=== PATIENT | female | born 1935 | race Caucasian/White ===

== ENCOUNTER 2017-10-26 15:19 | Emergency (ER) | payer MEDICARE, BC ==
--- NOTE | 2017-10-26 15:30 | UC ---
Throat Pain/Nasal Domingo HPI - HPI Summary HPI Summary: 82 year female presents with complains of sore throat and rash on her back. - History of Current Complaint Stated Complaint: ST, SKIN COMPLAINT Time Seen by Provider: 10/26/17 15:30 Hx Obtained From: Patient Onset/Duration: Sudden Onset Severity: Moderate Pain Scale Used: 0-10 Numeric - 5 Cough: Nonproductive Associated Signs & Symptoms: Positive: Negative - Allergies/Home Medications Allergies/Adverse Reactions: Allergies Allergy/AdvReac Type Severity Reaction Status Date / Time prescribed pain med Allergy Rash And Uncoded 10/26/17 16:45 Itching Home Medications: Home Medications Amlodipine Besylate [Norvasc 5 mg tab] 5 mg PO DAILY 10/26/17 [History Confirmed 10/26/17] Citalopram TAB* [CeleXA TAB*] 30 mg PO DAILY 10/26/17 [History Confirmed ] Clotrimazole W/ Betamethasone [Clotrimazole/Betamethason 1-0.05 %] 1 lot EX BID 10/26/17 [History Confirmed 10/26/17] Docusate CAP* [Colace Cap*] 100 mg PO BID PRN 10/26/17 [History Confirmed ] Hydrochlorothiazide TAB* [Hydrodiuril TAB*] 25 mg PO DAILY PRN 10/26/17 [ History Confirmed 10/26/17] Hydrocodone-Acetaminophen [Vicodin 5-300 mg] 1 tab PO Q4H PRN 10/26/17 [History Confirmed 10/26/17] Latanoprost 0.005%* [Xalatan 0.005%*] 1 drop BOTH EYES DAILY 10/26/17 [History Confirmed 10/26/17] Multiple Vitamins W/ Minerals [Preservision Areds 2 + Mu] 1 cap PO DAILY [History Confirmed 10/26/17] Nystatin CREAM* 1 applic TOPICAL BID 10/26/17 [History Confirmed 10/26/17] Rosuvastatin Calcium 5 mg PO DAILY 10/26/17 [History Confirmed 10/26/17] Sennosides [Eq Natural Laxative] 17.12 mg PO DAILY PRN 10/26/17 [History Confirmed 10/26/17] Vitamin B Complex TAB* [Complex B-100*] 1 tab PO DAILY 10/26/17 [History Confirmed 10/26/17] fentaNYL PATCH 12 MCG/HR * [Duragesic Patch 12 Mcg/Hr *] 12 mcg TRANSDERM Q72H 10/26/17 [History Confirmed 10/26/17] PMH/Surg Hx/FS Hx/Imm Hx Previously Healthy: Yes Review of Systems Constitutional: Negative Skin: Rash Eyes: Negative ENT: Sore Throat, Nasal Discharge, Sinus Congestion, Sinus Pain/Tenderness Respiratory: Negative Cardiovascular: Negative Gastrointestinal: Negative Genitourinary: Negative Motor: Negative Neurovascular: Negative Musculoskeletal: Negative Neurological: Negative Psychological: Negative All Other Systems Reviewed And Are Negative: Yes Physical Exam Triage Information Reviewed: Yes Vital Signs Reviewed: Yes Eye Exam: Normal ENT: Positive: Pharyngeal erythema, Nasal congestion, Nasal drainage, Sinus tenderness Dental Exam: Normal Neck exam: Normal Neck: Positive: 1 Respiratory Exam: Normal Cardiovascular Exam: Normal Abdominal Exam: Normal Musculoskeletal Exam: Normal Neurological Exam: Normal Psychological Exam: Normal Skin: Positive: rashes Throat Pain/Nasal Course/Dx - Differential Dx/Diagnosis Provider Diagnoses: strep throat Discharge - Discharge Plan Condition: Stable Disposition: HOME Prescriptions: Amoxicillin PO (*) [Amoxicillin 875 MG (*)] 875 mg PO BID #20 tab Magic M W2 Vinnie/Maal/Nyst/Lido* 5 ml SWISH SPIT QID PRN #120 ml PRN Reason: Pain Triamcinolone 0.5% CREAM(NF) [Triamcinolone 0.5% CREAM*] 1 applic TOPICAL BID # 85 gm Patient Education Materials: Strep Throat (ED) Referrals: Junito Stoll MD [Primary Care Provider] -
== END 2017-10-26 17:41 | disposition home or self-care (01) ==
LOC: UCCORT 15:19
DX: J02.0 Streptococcal pharyngitis (principal)
CPT/HCPCS: 87651; 99202; G0463

== ENCOUNTER 2019-12-30 11:06 | Emergency (ER) | payer MEDICARE, BC ==
[2019-12-30 12:41] VITALS: BP 130/46
--- NOTE | 2019-12-30 13:06 | UC ---
Respiratory Complaint HPI - HPI Summary HPI Summary: exposed to flu 6 days ago. has since had Cough x 2 days, elevated temps: 99.8 yesterday. assoc w/ fatigueshe is drinking fluids normally and urinating well. Dr. Stoll is aware of low diastolic BP readings. daughter just wants to check for the flu. - History of Current Complaint Chief Complaint: UCRespiratory Stated Complaint: FLU EXP, FEVER, COUGH Time Seen by Provider: 12/30/19 12:50 Hx Obtained From: Patient Pain Intensity: 0 Aggravating Factors: Nothing Alleviating Factors: Nothing - Allergies/Home Medications Allergies/Adverse Reactions: Allergies Allergy/AdvReac Type Severity Reaction Status Date / Time Latex, Natural Rubber Allergy skin Verified 12/30/19 12:43 sloughing fentanyl patch Allergy Rash Uncoded 12/30/19 12:43 prescribed pain med Allergy See Comment Uncoded 12/30/19 12:43 Home Medications: Home Medications Amlodipine Besylate [Norvasc 5 mg tab] 5 mg PO DAILY 10/26/17 [History Confirmed 12/30/19] Citalopram TAB* [CeleXA TAB*] 30 mg PO DAILY 10/26/17 [History Confirmed ] Hydrocodone/Acetaminophen [Vicodin 5-300 mg] 1 tab PO TID 10/26/17 [History Confirmed 12/30/19] Latanoprost 0.005%* [Xalatan 0.005%*] 1 drop BOTH EYES DAILY 10/26/17 [History Confirmed 12/30/19] Nystatin CREAM* 1 applic TOPICAL BID PRN 10/26/17 [History Confirmed 12/30/19] Amitriptyline TAB* [Elavil TAB*] 1 dose PO BID 12/30/19 [History Confirmed 12/30] Areds 1 tab PO BID 12/30/19 [History Confirmed 12/30/19] DOXYcycline CAP(*) [DOXYcycline 100MG CAP(*)] 100 mg PO DAILY 5 Days #5 cap [Rx] Multivitamin [Multivitamins] 1 each PO DAILY 12/30/19 [History Confirmed ] Rosuvastatin Calcium [Crestor] 5 mg PO QPM 12/30/19 [History Confirmed 12/30/19] Water Pill 1 dose PO QAM 12/30/19 [History Confirmed 12/30/19] PMH/Surg Hx/FS Hx/Imm Hx Previously Healthy: Yes Cardiovascular History: Cardiac Disease Psychological History: Depression - Surgical History Surgical History: Yes - Family History Known Family History: Positive: Non-Contributory - Social History Alcohol Use: None Substance Use Type: None Smoking Status (MU): Never Smoked Tobacco Review of Systems All Other Systems Reviewed And Are Negative: Yes Constitutional: Positive: Fever. Negative: Chills, Fatigue Skin: Negative: Rash ENT: Negative: Sore Throat, Ear Ache, Sinus Congestion Respiratory: Positive: Cough Gastrointestinal: Negative: Vomiting, Diarrhea Neurovascular: Negative: Other - denies confusion Neurological/Mental Status: Negative: Headache Physical Exam Triage Information Reviewed: Yes Appearance: Well-Appearing, Other: - in wheel chair Vital Signs: Initial Vital Signs Temp 99.1 F 12/30/19 12:26 Pulse 51 12/30/19 12:26 Resp 22 12/30/19 12:26 BP 130/46 12/30/19 12:26 Pulse Ox 97 12/30/19 12:26 Vital Signs Reviewed: Yes Eyes: Positive: Conjunctiva Clear ENT: Positive: Pharynx normal, TMs normal, Uvula midline Neck: Positive: Supple, Nontender, No Lymphadenopathy Respiratory: Positive: No respiratory distress, Rhonchi - RUL. Negative: Crackles, Stridor, Wheezing Cardiovascular Exam: Normal Neurological: Positive: Alert, Other: - normal speech. Negative: Lethargic Psychological: Positive: Normal Response To Family Skin: Positive: Other - good skin turgor. Negative: Rashes Respiratory Course/Dx - Course Course Of Treatment: 2 days of cough w/ flu exposure. on exam mild rhonchi and suspect a preliminary bronchitis, viral source but family was concerned for bacterial issue. Vitals baseline for pt. and pcp aware of diastolic readings. rapid flu neg. will send antibx and disc side effects and chance of ineffectiveness. - Differential Dx/Diagnosis Differential Diagnosis/HQI/PQRI: Bronchitis, Influenza, Lower Resp Infection, Other Provider Diagnosis: Cough Discharge ED - Sign-Out/Discharge Documenting (check all that apply): Patient Departure All imaging exams completed and their final reports reviewed: No Studies - Discharge Plan Condition: Good Disposition: HOME Prescriptions: DOXYcycline CAP(*) [DOXYcycline 100MG CAP(*)] 100 mg PO DAILY 5 Days #5 cap Patient Education Materials: Upper Respiratory Infection (ED) Referrals: Junito Stoll MD [Primary Care Provider] - Additional Instructions: Please follow up with your pcp if not improving. - Billing Disposition and Condition Condition: GOOD Disposition: Home
[2019-12-30 13:14] LABS: Influenza A Molecular Negative (Negative); Influenza B Molecular Negative (Negative)
== END 2019-12-30 13:37 | disposition home or self-care (01) ==
LOC: UCCORT 11:06
DX: R05 Cough (principal); F32.9 Major depressive disorder, single episode, unspecified; Z91.040 Latex allergy status; Z88.8 Allergy status to other drugs, medicaments and biological substances; Z88.6 Allergy status to analgesic agent; Z79.899 Other long term (current) drug therapy
CPT/HCPCS: 99212; G0463